=== PATIENT | male | born 1985 | race Two or more races ===

== ENCOUNTER 2018-05-24 22:54 | Emergency (ER) | payer SELFPAY ==
[2018-05-24 23:02] VITALS: TEMP 98.1
[2018-05-24] MEDS ORDERED: Lidocaine 2% w Epi 1:100,000 Inj IJ ONE (23:15)
--- NOTE | 2018-05-24 23:56 | ED PDOC ---
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 Unable to get reliable history due to patient intoxication. As per EMS report patient was intoxicated and and fallen but at present patient is refusing to give clear history. Patient denies fall and denies assault. PMD: None provided Past Medical History Reviewed: Historical Data, Nursing Documentation, Vital Signs Vital Signs: Last Vital Signs Temp 98.1 F 05/24/18 22:56 Pulse 86 05/24/18 22:56 Resp 18 05/24/18 22:56 BP 130/85 05/24/18 22:56 Pulse Ox 97 05/24/18 22:56 - Family History Family History: States: Unknown Family Hx - Home Medications Home Medications: Ambulatory Orders Medication Instructions Recorded Amoxicillin/Clavulanate [Augmentin 1 tab PO BID #10 tab 05/24/18 875 MG-125 MG] - Allergies Allergies/Adverse Reactions: Allergies Allergy/AdvReac Type Severity Reaction Status Date / Time No Known Allergies Allergy Verified 05/24/18 23:02 Review of Systems Review Of Systems: ROS cannot be obtained secondary to pt's inabilty to answer questions. Physical Exam - Reviewed Nursing Documentation Reviewed: Yes Vital Signs Reviewed: Yes - Physical Exam Appears: Positive for: Non-toxic, No Acute Distress (disheveled and intoxicated) Head Exam: Positive for: NORMOCEPHALIC. Negative for: ATRAUMATIC (swelling to left cheek; 2.5 cm laceration in upper lip involving mucosa but does not cross paty border; no tenderness to palpation on head or face) Skin: Positive for: Warm, Dry Eye Exam: Positive for: EOMI, PERRL, Conjunctival injection ENT: Positive for: TM Is/Are (no hemotympanum), Other (dried blood in nares; intact dentition; no malocclusion) Neck: Positive for: Painless ROM, Supple Cardiovascular/Chest: Positive for: Regular Rate, Rhythm. Negative for: Murmur Respiratory: Positive for: Normal Breath Sounds. Negative for: Respiratory Distress Gastrointestinal/Abdominal: Positive for: Soft. Negative for: Tenderness Back: Positive for: Normal Inspection. Negative for: Vertebral Tenderness Extremity: Positive for: Normal ROM. Negative for: Deformity Lymphatic: Negative for: Adenopathy Neurologic/Psych: Positive for: Alert, Gait (unsteady), Other (mumbling incoherently w/ slurred speech). Negative for: Oriented, Motor/Sensory Deficits - ECG O2 Sat by Pulse Oximetry: 97 (RA) Pulse Ox Interpretation: Normal Medical Decision Making Medical Decision Making: Initial Impression: Alcohol intoxication, lip laceration, head injury Time: 23:16 Plan: CT - Head w/o contrast CT - Maxillofacial Alcohol serum Tetanus Lidocaine/Epi 5 ml Time: 00:00 --Patient care endorsed to Dr. Mensah pending CT scan and clinical sobriety. Scribe Attestation: Documented by Alexy Montalvo, acting as a scribe for Mary Howell MD. Provider Scribe Attestation: All medical record entries made by the Scribe were at my direction and personally dictated by me. I have reviewed the chart and agree that the record accurately reflects my personal performance of the history, physical exam, medical decision making, and the department course for this patient. I have also personally directed, reviewed, and agree with the discharge instructions and disposition. Procedures - Laceration/Wound Repair Left Upper Face Wound Length (cm): 2.5 Wound's Depth, Shape: superficial Anesthesia: Lidocaine w/ Epi (2%) Volume Anesthetic (ccs): 4 (ml) Wound Repaired With: Sutures (fast absorbing gut sutures (5:0); chromic gut sutures (3:0)) Suture Size/Type: 5:0, 3:0 Number of Sutures: 6 (2 5:0; 4 3:0; interrupted) Wound Complexity: Simple Disposition - Clinical Impression Clinical Impression: Alcohol abuse with intoxication, Lip laceration, Head injury - Disposition Disposition: Transfer of Care Disposition Time: 00:00 Condition: FAIR Prescriptions: Amoxicillin/Clavulanate [Augmentin 875 MG-125 MG] 1 tab PO BID #10 tab Instructions: Laceration Repair With Stitches (DC), Alcohol Abuse and Alcoholism (DC) Print Language: PORTUGUESE Patient Signed Over To: Kesha Mensah Y Handoff Comments: Pending ct scans, sobriety, reassessment and final ER disposition - POA Present On Arrival: Falls Or Trauma
[2018-05-24] MEDS ORDERED: Tdap Vaccine 0.5 ml Vial (10-64 yrs) IM ONE (23:58)
--- NOTE | 2018-05-25 02:54 | ED PDOC ---
- ECG O2 Sat by Pulse Oximetry: 97 (RA) Medical Decision Making Medical Decision Making: Time: 00:00 Patient care endorsed from Dr. Howell to Dr. Mensah pending CT scan and clinical sobriety. Time: 00:38 CT Head FINDINGS: Brain: Mild volume loss No hemorrhage. No significant white matter disease. No edema. Ventricles: Normal. No ventriculomegaly. Bones/joints: Normal. No acute fracture. Sinuses: Normal as visualized. No acute sinusitis. Mastoid air cells: Normal as visualized. No mastoid effusion. Soft tissues: Normal. IMPRESSION: No intracranial hemorrhage.Please see discussion above. Time: 00:39 CT Maxillofacial FINDINGS: Bones/joints: No acute fracture. Soft tissues: Left upper lip laceration Orbits: Normal. Globes are unremarkable. Sinuses: Minimal mucosal thickening No air-fluid levels. IMPRESSION: No definite acute orbital or mandibular fracture Time: 02:48 Patient's alcohol level is found to be 248. Will continue to monitor for clinical sobriety. 6 am pt awake and alert, stable gait and vital signs. pt will be dc-ed home and outpt follow up for suture removal. ----- Scribe Attestation: Documented by Alexy Montalvo, acting as a scribe for Kesha Mensah MD Provider Scribe Attestation: All medical record entries made by the Scribe were at my direction and personally dictated by me. I have reviewed the chart and agree that the record accurately reflects my personal performance of the history, physical exam, medical decision making, and the department course for this patient. I have also personally directed, reviewed, and agree with the discharge instructions and disposition. Disposition Counseled Patient/Family Regarding: Studies Performed, Diagnosis, Need For Followup - Clinical Impression Clinical Impression: Alcohol abuse with intoxication, Lip laceration, Head injury - POA Present On Arrival: None - Disposition Disposition: Routine/Home Disposition Time: 06:00 Condition: IMPROVED Additional Instructions: follow up with your doctor in 2 days return to the ED with any worsening or concerning symptoms Prescriptions: Amoxicillin/Clavulanate [Augmentin 875 MG-125 MG] 1 tab PO BID #10 tab Instructions: Laceration Repair With Stitches (DC), Alcohol Abuse and Alcoholism (DC) Forms: [employer] (Nauruan) Print Language: MONGOLIAN
[2018-05-25 06:14] VITALS: BP 116/67; PULSE 74; RESP 16
--- NOTE | 2018-05-25 08:36 | CT ---
Date of service: 05/24/2018 PROCEDURE: CT HEAD WITHOUT CONTRAST. HISTORY: fall head injury COMPARISON: None available. TECHNIQUE: Axial computed tomography images were obtained through the head/brain without intravenous contrast. Radiation dose: Total exam DLP = mGy-cm. This CT exam was performed using one or more of the following dose reduction techniques: Automated exposure control, adjustment of the mA and/or kV according to patient size, and/or use of iterative reconstruction technique. FINDINGS: HEMORRHAGE: No intracranial hemorrhage. BRAIN: No mass effect or edema. No atrophy or chronic microvascular ischemic changes. VENTRICLES: Unremarkable. No hydrocephalus. CALVARIUM: Unremarkable. PARANASAL SINUSES: Unremarkable as visualized. No significant inflammatory changes. MASTOID AIR CELLS: Unremarkable as visualized. No inflammatory changes. OTHER FINDINGS: None. IMPRESSION: Normal CT of the Head.
--- NOTE | 2018-05-25 08:37 | CT ---
Date of service: 05/24/2018 PROCEDURE: CT MAXILLOFACIAL BONES WITHOUT CONTRAST HISTORY: head trauma LEFT facial injury COMPARISON: None available. TECHNIQUE: Contiguous axial CT images of the maxillofacial bones were obtained. Coronal and sagittal reformats were generated. Radiation dose: Total exam DLP = mGy-cm. This CT exam was performed using one or more of the following dose reduction techniques: Automated exposure control, adjustment of the mA and/or kV according to patient size, and/or use of iterative reconstruction technique. FINDINGS: NASAL BONES: Unremarkable. ORBITS: Unremarkable. PARANASAL SINUSES/ MASTOIDS: Clear. MAXILLA: Unremarkable. MANDIBLE/ TEMPOROMANDIBULAR JOINTS: Unremarkable. SKULL BASE: Unremarkable. TEMPORAL BONES: Middle ears and mastoid grossly unremarkable. OTHER FINDINGS: Left upper lip laceration. IMPRESSION: Left upper lip laceration. No fracture
[2018-05-26 14:19] VITALS: O2SAT 97
== END 2018-05-25 06:20 | disposition home or self-care (01) ==
LOC: H.ER 22:54
DX: F10.129 Alcohol abuse with intoxication, unspecified (principal); S09.90XA Unspecified injury of head, initial encounter; S01.511A Laceration without foreign body of lip, initial encounter; W19.XXXA Unspecified fall, initial encounter; Y92.89 Other specified places as the place of occurrence of the external cause
CPT/HCPCS: 12011; 70450; 70486; 82948; 90471; 90715; 99283; G0480